=== PATIENT | male | born 1940 | race Caucasian/White ===

== ENCOUNTER 2019-11-23 07:27 | Outpatient (CLI) | payer OTHER ==
[~2019-11-23 07:27] MED LIST: ASA81 MG PO; BONIVA150 MG PO; CALCIUM1 TAB PO; CEREFOLIN TABLE1 TAB PO; CLONAZEPAM1 MG PO; CYMBALTA30 MG PO; DIOVAN160 M1 PO; DIOVAN40 MG PO; EFFEXOR XR37.5 MG PO; EXELON4.5 MG PO; FINASTERIDE1 MG PO; FOLIC ACID0.4 MG PO; FOSAMAX5 MG PO; GLUCOSAMINE 1,51 CA1 PO; LYRICA200 MG PO; LYRICA50 MG PO; NAMENDA XR28 MG PO; NAMENDA5 MG PO; OMEGA-31000 MG PO; SELENIMIN50 MCG PO; SYNTHROID50 MCG PO; UROXATRAL10 MG PO; ZOCOR5 MG PO
== END 2019-11-23 07:48 | disposition home or self-care (01) ==
LOC: NUCLEAR 07:27
PROVIDERS: ATTEND Internal Medicine Cardiovascular Disease
DX: I11.9 Hypertensive heart disease without heart failure (principal); I25.10 Atherosclerotic heart disease of native coronary artery without angina pectoris
CPT/HCPCS: 78452; 93017; A9500; J0153